=== PATIENT | female | born 1935 | race Caucasian/White ===

== ENCOUNTER 2017-04-09 10:07 | Inpatient (IN) | payer MEDICARE, OTHER ==
[~2017-04-09 10:07] MED LIST: COUMADIN5 MG PO; GABAPENTIN100 M1 PO; LATANOPROST2.5 M1 OP; LOVENOX40 MG/0.4 SQ; LYRICA50 MG/CAP PO; MACROBID 100 M100 M1 PO; MOBIC15 MG PO; NORCO 5/3251 TAB PO; PREMARIN30 GM VG; XALATAN2.5 ML LEFT EYE
[2017-04-10] MEDS ORDERED: NORCO 5-325 TA1 EACH PO (10:40)
[2017-04-10] MEDS ORDERED: CYCLOBENZAPRINE5 M1 PO (10:41)
== END 2017-04-10 13:44 | DRG 520 ==
LOC: SHSC 10:07 → ORE 13:31 → PACU 15:43 → 5EC 16:30
PROVIDERS: ADMIT Orthopaedic Surgery
PROC: 0SB20ZZ Excision of Lumbar Vertebral Disc, Open Approach (ICD-10-PCS; principal; 2017-04-09)
PROC: 01NB0ZZ Release Lumbar Nerve, Open Approach (ICD-10-PCS; 2017-04-09)
DX: M51.16 Intervertebral disc disorders with radiculopathy, lumbar region (principal); G62.9 Polyneuropathy, unspecified; H40.9 Unspecified glaucoma; Z87.891 Personal history of nicotine dependence; Z96.649 Presence of unspecified artificial hip joint; M48.06 Spinal stenosis, lumbar region
CPT/HCPCS: G8987-GO-CJ; G8988-GO-CI; G8989-GO-CJ; J0690